=== PATIENT | female | born 1935 | race Caucasian/White ===

== ENCOUNTER → 2018-03-23 | Outpatient (CLI) | payer MEDICARE ==
[~2018-03-23] MED LIST: AMLO-150 PO; ASPI-496 PO; CALCIUM PO; CHOL200059 PO; GABA-826 PO; HYDR25TA6 PO; LEVO75TA5 PO; LOSA100T14 PO; LOSA1TAB19 PO; MELO15TA24 PO; OMEP-110 PO; TRAM50TA2 PO
[2018-03-23 10:05] LABS: MICROSCOPIC AUTO
[2018-03-23 10:06] LABS: CULTURE INDICATED? YES
[2018-03-23 10:08] LABS: BASOPHILS # (AUTO) 0.02 x10^3/uL (0-0.1); BASOPHILS % (AUTO) 0 % (0-1); EOSINOPHILS # (AUTO) 0.09 x10^3/uL (0-0.4); EOSINOPHILS % (AUTO) 1 % (1-7); LYMPHOCYTES % (AUTO) 21 % (22-44); MD NO; MEAN CORPUSCULAR HEMOGLOBIN 30.4 pg (27.0-34.8); MEAN CORPUSCULAR VOLUME 91.9 fL (80-100); MEAN PLATELET VOLUME 7.2 fL (7.4-10.4); MONOCYTES # (AUTO) 0.38 x10^3/uL (0.2-0.8); MONOCYTES % (AUTO) 5 % (2-9); NEUTROPHILS # (AUTO) 5.15 x10^3/uL (1.8-6.8); NEUTROPHILS % (AUTO) 72 % (42-75); PLATELET COUNT 292 x10^3/uL (130-400); RED BLOOD COUNT 4.71 x10^6/uL (3.82-5.3); RED CELL DISTRIBUTION WIDTH 14.2 % (9.6-15.2)
[2018-03-23 10:15] LABS: INTERNATIONAL NORMALIZED RATIO 0.98 (0.93-1.1); PROTHROMBIN TIME 10.4 Seconds (9.6-11.5)
[2018-03-23 10:16] LABS: ALBUMIN 3.9 g/dL (3.4-5.0); ANION GAP 6 mmol/L (5-15); CALCIUM 9.2 mg/dL (8.5-10.1); CHLORIDE 103 mmol/L (98-107)
[2018-03-23 10:19] LABS: ALANINE AMINOTRANSFERASE 23 U/L (12-78); ALKALINE PHOSPHATASE 85 U/L (45-117); BILIRUBIN,TOTAL 0.4 mg/dL (0.2-1.0); CREATININE 0.93 mg/dL (0.55-1.02); TOTAL PROTEIN 7.6 g/dL (6.4-8.2)
== END | disposition home or self-care (01) ==
LOC: STAR 08:41
PROVIDERS: ATTEND Neurological Surgery
DX: M51.36 Other intervertebral disc degeneration, lumbar region (principal); M47.816 Spondylosis without myelopathy or radiculopathy, lumbar region; M48.062 Spinal stenosis, lumbar region with neurogenic claudication; M41.86 Other forms of scoliosis, lumbar region; I10 Essential (primary) hypertension; R01.1 Cardiac murmur, unspecified
CPT/HCPCS: 36415; 71046; 72110; 80053; 81001; 85025; 85610; 85730; 87086; 93005

== ENCOUNTER 2018-04-06 10:59 | Inpatient (IN) | payer MEDICARE ==
[~2018-04-06] VITALS: Ht 152.4 cm; Wt 80.7 kg
[~2018-04-06 10:59] MED LIST changes: +BACITRACIN 50,000 UNIT ONE; +BUPIVACAINE/PF 0.25% ONE; +EPINEPHRINE 1 MG/ML, 1ML ONE; +THROMBIN 5,000 UNIT VIAL TP ONE; +VANCOMYCIN 1,000 MG ONE
[2018-04-06] MEDS ORDERED: LACTATED RINGERS 1,000 ML IV SCH (12:03)
[2018-04-06] MEDS ORDERED: ONDANSETRON 2MG/ML, 2ML IVPush STA (12:04)
[2018-04-06] MEDS ORDERED: OXYcodone IR 5MG TABLET PO STA (12:04)
[2018-04-06] MEDS ORDERED: ACETAMINOPHEN 500 MG TABLET PO STA (12:04)
[2018-04-06] MEDS ORDERED: GABAPENTIN 300 MG CAPSULE PO STA (12:04)
[2018-04-06] MEDS ORDERED: ACET-458 PO (12:12)
[2018-04-06] MEDS ORDERED: OMEP-110 PO (12:12)
[2018-04-06] MEDS ORDERED: MIDAZOLAM 1 MG/ML, 2ML ONE (15:05)
[2018-04-06] MEDS ORDERED: PROPOFOL 50 ML ONE ×2 (15:05→18:03)
[2018-04-06] MEDS ORDERED: FENTANYL PF 250 MCG/5ML ONE (15:05)
[2018-04-06] MEDS ORDERED: PROPOFOL 10 MG/ML, 20ML ONE ×3 (15:10→19:12)
[2018-04-06] MEDS ORDERED: SUCCINYLCHOLINE 20 MG/ML, 10ML ONE (16:26)
[2018-04-06] MEDS ORDERED: PHENYLEPHRINE 10 MG/ML ONE (16:26)
[2018-04-06] MEDS ORDERED: DEXAMETHASONE 4 MG/ML, 1ML ONE (16:26)
[2018-04-06] MEDS ORDERED: ROCURONIUM 10 MG/ML,10ML ONE (16:26)
[2018-04-06] MEDS ORDERED: hydrALAzine 20 MG/ML, 1ML IV PRN (17:30)
[2018-04-06] MEDS ORDERED: ACETAMINOPHEN 325 MG TABLET PO PRN (17:30)
[2018-04-06] MEDS ORDERED: ONDANSETRON 2MG/ML, 2ML IV PRN ×2 (17:30→23:30)
[2018-04-06] MEDS ORDERED: PROMETHAZINE 25 MG/ML, 1ML IV PRN (17:30)
[2018-04-06] MEDS ORDERED: MEPERIDINE/PF 25MG/0.5ML IVPush PRN (17:30)
[2018-04-06] MEDS ORDERED: ALBUTEROL/IPRATROPIUM 2.5MG/0.5MG, 3 ML NPPB PRN (17:30)
[2018-04-06] MEDS ORDERED: MIDAZOLAM 1 MG/ML, 2ML IV PRN (17:30)
[2018-04-06] MEDS ORDERED: LABETALOL 5MG/ML, 20ML IV PRN (17:30)
[2018-04-06] MEDS ORDERED: OXYcodone 5 MG/5 ML ORAL.SOL UDC PO PRN (17:30)
[2018-04-06] MEDS ORDERED: CEFAZOLIN 1,000 MG ONE (19:12)
[2018-04-06] MEDS ORDERED: FENTANYL PF 100 MCG/2ML ONE (19:39)
[2018-04-06] MEDS ORDERED: OXYcodone 5 MG/5 ML ORAL.SOL UDC ONE (19:40)
[2018-04-06] MEDS: FENTANYL PF 100 MCG/2ML IV PRN ×3 (19:40→19:50)
[2018-04-06] MEDS ORDERED: HYDROmorphone 1 MG/ML, 1ML ONE (19:53)
[2018-04-06] MEDS ORDERED: HYDROmorphone PCA 30 MG/30 ML IV PRN ×2 (20:00→23:30)
[2018-04-06] MEDS: HYDROmorphone 2 MG/ML, 1ML IVPush PRN ×3 (20:00→20:15)
[2018-04-06] MEDS ORDERED: TIZANIDINE 2MG TABLET PO ONE (20:00)
[2018-04-06] MEDS: GABAPENTIN 100 MG CAPSULE PO SCH (21:00)
[2018-04-06] MEDS ORDERED: PHARMACY MAY ADJ FOR RENAL FX MC PRN (23:00)
[2018-04-06] MEDS ORDERED: MAGNESIUM HYDROXIDE 8%, 30ML UDC PO PRN (23:30)
[2018-04-06] MEDS ORDERED: DIPHENHYDRAMINE 25 MG CAPSULE PO PRN (23:30)
[2018-04-06] MEDS ORDERED: BISACODYL 10 MG SUPP PR PRN (23:30)
[2018-04-06] MEDS ORDERED: morphine SULFATE 10 MG/ML, 1ML IV PRN (23:30)
[2018-04-06] MEDS ORDERED: DIPHENHYDRAMINE 50 MG/ML, 1ML IVPush PRN (23:30)
[2018-04-07 01:01] VITALS: BP 107/65
[2018-04-07] MEDS: NS + 20MEQ KCL 1,000 ML IV SCH ×3 (01:55→23:08)
[2018-04-07] MEDS: CEFAZOLIN PMX 1GM/50ML 50 ML IVPB SCH ×2 (01:55→08:51)
[2018-04-07] MEDS: METHOCARBAMOL 750 MG TABLET PO SCH ×3 (02:04→17:52)
[2018-04-07 05:07] LABS: BASOPHILS % (AUTO) 0 % (0-1); EOSINOPHILS % (AUTO) 0 % (1-7); LYMPHOCYTES # (AUTO) 0.58 x10^3/uL (1-3.4); LYMPHOCYTES % (AUTO) 8 % (22-44); MD NO; MEAN CORPUSCULAR HEMOGLOBIN 30.9 pg (27.0-34.8); MEAN CORPUSCULAR HGB CONC 33.2 g/dL (32.4-35.8); MEAN CORPUSCULAR VOLUME 93.1 fL (80-100); MEAN PLATELET VOLUME 7.6 fL (7.4-10.4); MONOCYTES % (AUTO) 1 % (2-9); NEUTROPHILS # (AUTO) 6.37 x10^3/uL (1.8-6.8); NEUTROPHILS % (AUTO) 90 % (42-75); PLATELET COUNT 218 x10^3/uL (130-400); RED BLOOD COUNT 3.68 x10^6/uL (3.82-5.3); RED CELL DISTRIBUTION WIDTH 13.5 % (9.6-15.2)
[2018-04-07 05:18] LABS: ANION GAP 7 mmol/L (5-15); CALCIUM 8.1 mg/dL (8.5-10.1); CHLORIDE 105 mmol/L (98-107)
[2018-04-07 05:20] LABS: CREATININE 0.95 mg/dL (0.55-1.02)
[2018-04-07] MEDS ORDERED: HYDROcodone/APAP 5/325 TABLET PO PRN (05:30)
[2018-04-07] MEDS: OMEPRAZOLE 20 MG CAPSULE.DR PO SCH (06:16)
[2018-04-07] MEDS: LEVOTHYROXINE 75 MCG TABLET PO SCH (06:17)
[2018-04-07 06:57] VITALS: BP 104/63
[2018-04-07] MEDS: HYDROCHLOROTHIAZIDE 25 MG TABLET PO SCH (08:47)
[2018-04-07] MEDS: LOSARTAN 50MG TABLET PO SCH (08:47)
[2018-04-07] MEDS: AMLODIPINE 5 MG TABLET PO SCH (08:48)
[2018-04-07] MEDS: SENNA/DOCUSATE TABLET PO SCH (08:50)
[2018-04-07 11:00] VITALS: BP 110/68
[2018-04-07 13:06] VITALS: BP 119/64
[2018-04-07 16:00] VITALS: BP 108/68
[2018-04-07 19:43] VITALS: BP 121/63
[2018-04-07] MEDS: OXYcodone/APAP 5/325MG TABLET PO PRN (20:44)
[2018-04-07] MEDS: GABAPENTIN 100 MG CAPSULE PO SCH (20:44)
[2018-04-08] MEDS: METHOCARBAMOL 750 MG TABLET PO SCH ×3 (02:18→17:46)
[2018-04-08] MEDS: OXYcodone/APAP 5/325MG TABLET PO PRN ×5 (02:19→20:11)
[2018-04-08 02:50] VITALS: BP 120/65
[2018-04-08 05:22] LABS: BASOPHILS # (AUTO) 0.03 x10^3/uL (0-0.1); BASOPHILS % (AUTO) 0 % (0-1); EOSINOPHILS # (AUTO) 0.02 x10^3/uL (0-0.4); EOSINOPHILS % (AUTO) 0 % (1-7); LYMPHOCYTES # (AUTO) 1.98 x10^3/uL (1-3.4); LYMPHOCYTES % (AUTO) 21 % (22-44); MD NO; MEAN CORPUSCULAR HEMOGLOBIN 31.6 pg (27.0-34.8); MEAN CORPUSCULAR HGB CONC 33.7 g/dL (32.4-35.8); MEAN CORPUSCULAR VOLUME 93.5 fL (80-100); MEAN PLATELET VOLUME 7.7 fL (7.4-10.4); MONOCYTES # (AUTO) 0.67 x10^3/uL (0.2-0.8); MONOCYTES % (AUTO) 7 % (2-9); NEUTROPHILS # (AUTO) 6.68 x10^3/uL (1.8-6.8); NEUTROPHILS % (AUTO) 71 % (42-75); PLATELET COUNT 198 x10^3/uL (130-400); RED BLOOD COUNT 3.43 x10^6/uL (3.82-5.3); RED CELL DISTRIBUTION WIDTH 13.9 % (9.6-15.2)
[2018-04-08 05:26] LABS: ANION GAP 4 mmol/L (5-15); CALCIUM 7.8 mg/dL (8.5-10.1); CHLORIDE 110 mmol/L (98-107); CREATININE 0.81 mg/dL (0.55-1.02)
[2018-04-08] MEDS: OMEPRAZOLE 20 MG CAPSULE.DR PO SCH (06:48)
[2018-04-08] MEDS: LEVOTHYROXINE 75 MCG TABLET PO SCH (06:49)
[2018-04-08] MEDS: NS + 20MEQ KCL 1,000 ML IV SCH ×2 (08:00→17:40)
[2018-04-08 08:52] VITALS: BP 90/51
[2018-04-08] MEDS: SENNA/DOCUSATE TABLET PO SCH (09:00)
[2018-04-08] MEDS: AMLODIPINE 5 MG TABLET PO SCH (09:00)
[2018-04-08] MEDS: LOSARTAN 50MG TABLET PO SCH (09:00)
[2018-04-08] MEDS: HYDROCHLOROTHIAZIDE 25 MG TABLET PO SCH (09:09)
[2018-04-08 12:03] VITALS: BP 104/61
[2018-04-08 14:19] VITALS: BP 95/55
[2018-04-08 19:53] VITALS: BP 101/62
[2018-04-08] MEDS: GABAPENTIN 100 MG CAPSULE PO SCH (20:10)
[2018-04-09 01:54] VITALS: BP 111/65
[2018-04-09 01:55] VITALS: BP 111/65
[2018-04-09] MEDS: OXYcodone/APAP 5/325MG TABLET PO PRN ×4 (01:56→14:22)
[2018-04-09] MEDS: METHOCARBAMOL 750 MG TABLET PO SCH ×3 (01:56→18:29)
[2018-04-09] MEDS: NS + 20MEQ KCL 1,000 ML IV SCH ×3 (04:01→23:50)
[2018-04-09 05:14] LABS: BASOPHILS # (AUTO) 0.01 x10^3/uL (0-0.1); BASOPHILS % (AUTO) 0 % (0-1); EOSINOPHILS # (AUTO) 0.04 x10^3/uL (0-0.4); EOSINOPHILS % (AUTO) 0 % (1-7); LYMPHOCYTES # (AUTO) 2.17 x10^3/uL (1-3.4); LYMPHOCYTES % (AUTO) 21 % (22-44); MD NO; MEAN CORPUSCULAR HEMOGLOBIN 31.1 pg (27.0-34.8); MEAN CORPUSCULAR HGB CONC 33.5 g/dL (32.4-35.8); MEAN CORPUSCULAR VOLUME 92.9 fL (80-100); MEAN PLATELET VOLUME 7.7 fL (7.4-10.4); MONOCYTES % (AUTO) 8 % (2-9); NEUTROPHILS # (AUTO) 7.41 x10^3/uL (1.8-6.8); NEUTROPHILS % (AUTO) 71 % (42-75); PLATELET COUNT 208 x10^3/uL (130-400); RED BLOOD COUNT 3.57 x10^6/uL (3.82-5.3); RED CELL DISTRIBUTION WIDTH 14.2 % (9.6-15.2)
[2018-04-09 05:17] LABS: ANION GAP 6 mmol/L (5-15); CALCIUM 8.1 mg/dL (8.5-10.1); CHLORIDE 105 mmol/L (98-107); CREATININE 0.94 mg/dL (0.55-1.02)
[2018-04-09] MEDS: OMEPRAZOLE 20 MG CAPSULE.DR PO SCH (06:01)
[2018-04-09] MEDS: LEVOTHYROXINE 75 MCG TABLET PO SCH (06:02)
[2018-04-09] MEDS: LOSARTAN 50MG TABLET PO SCH (08:49)
[2018-04-09] MEDS: HYDROCHLOROTHIAZIDE 25 MG TABLET PO SCH (08:49)
[2018-04-09 08:50] VITALS: BP 126/69
[2018-04-09] MEDS: AMLODIPINE 5 MG TABLET PO SCH (08:50)
[2018-04-09] MEDS: SENNA/DOCUSATE TABLET PO SCH (08:55)
[2018-04-09 12:37] VITALS: BP 123/73
[2018-04-09 19:14] VITALS: BP 108/64
[2018-04-09] MEDS: GABAPENTIN 100 MG CAPSULE PO SCH (21:01)
[2018-04-09] MEDS ORDERED: ONDANSETRON ODT 4 MG ONE (21:10)
[2018-04-09] MEDS: ONDANSETRON ODT 4 MG PO PRN (21:12)
[2018-04-10 00:02] VITALS: BP 108/54
[2018-04-10] MEDS: OXYcodone/APAP 5/325MG TABLET PO PRN ×3 (01:57→11:22)
[2018-04-10] MEDS: METHOCARBAMOL 750 MG TABLET PO SCH ×3 (02:13→17:27)
[2018-04-10 05:42] LABS: BASOPHILS # (AUTO) 0.03 x10^3/uL (0-0.1); BASOPHILS % (AUTO) 0 % (0-1); EOSINOPHILS # (AUTO) 0.15 x10^3/uL (0-0.4); EOSINOPHILS % (AUTO) 2 % (1-7); LYMPHOCYTES # (AUTO) 1.49 x10^3/uL (1-3.4); LYMPHOCYTES % (AUTO) 16 % (22-44); MD NO; MEAN CORPUSCULAR HEMOGLOBIN 31.4 pg (27.0-34.8); MEAN CORPUSCULAR VOLUME 92.2 fL (80-100); MEAN PLATELET VOLUME 7.5 fL (7.4-10.4); MONOCYTES # (AUTO) 0.73 x10^3/uL (0.2-0.8); MONOCYTES % (AUTO) 8 % (2-9); NEUTROPHILS # (AUTO) 6.95 x10^3/uL (1.8-6.8); NEUTROPHILS % (AUTO) 74 % (42-75); PLATELET COUNT 209 x10^3/uL (130-400); RED BLOOD COUNT 3.42 x10^6/uL (3.82-5.3); RED CELL DISTRIBUTION WIDTH 13.9 % (9.6-15.2)
[2018-04-10] MEDS: LEVOTHYROXINE 75 MCG TABLET PO SCH (07:20)
[2018-04-10] MEDS: OMEPRAZOLE 20 MG CAPSULE.DR PO SCH (07:20)
[2018-04-10] MEDS: ONDANSETRON ODT 4 MG PO PRN ×3 (08:10→23:49)
[2018-04-10 08:24] VITALS: BP 100/60
[2018-04-10] MEDS: HYDROCHLOROTHIAZIDE 25 MG TABLET PO SCH (08:31)
[2018-04-10] MEDS: AMLODIPINE 5 MG TABLET PO SCH (08:31)
[2018-04-10] MEDS: LOSARTAN 50MG TABLET PO SCH (08:31)
[2018-04-10] MEDS: SENNA/DOCUSATE TABLET PO SCH (08:33)
[2018-04-10] MEDS: NS + 20MEQ KCL 1,000 ML IV SCH ×2 (09:38→17:27)
[2018-04-10] MEDS ORDERED: PROCHLORPERAZINE 10MG TABLET PO PRN (12:00)
[2018-04-10] MEDS ORDERED: PROMETHAZINE 25 MG SUPP PR PRN (12:00)
[2018-04-10] MEDS ORDERED: ACETAMINOPHEN 325 MG TABLET PO PRN (13:30)
[2018-04-10] MEDS ORDERED: OXYcodone IR 5MG TABLET PO PRN (13:30)
[2018-04-10] MEDS ORDERED: PROMETHAZINE 25 MG/ML, 1ML IM PRN (13:30)
[2018-04-10 15:30] VITALS: BP 99/47
[2018-04-10 20:00] VITALS: BP 116/68
[2018-04-10] MEDS: GABAPENTIN 100 MG CAPSULE PO SCH (21:13)
[2018-04-11 01:27] VITALS: BP 105/63
[2018-04-11] MEDS: METHOCARBAMOL 750 MG TABLET PO SCH (01:28)
[2018-04-11] MEDS: NS + 20MEQ KCL 1,000 ML IV SCH ×3 (04:06→21:28)
[2018-04-11 05:23] LABS: BASOPHILS # (AUTO) 0.02 x10^3/uL (0-0.1); BASOPHILS % (AUTO) 0 % (0-1); EOSINOPHILS # (AUTO) 0.11 x10^3/uL (0-0.4); EOSINOPHILS % (AUTO) 2 % (1-7); LYMPHOCYTES # (AUTO) 1.75 x10^3/uL (1-3.4); LYMPHOCYTES % (AUTO) 23 % (22-44); MD NO; MEAN CORPUSCULAR HEMOGLOBIN 31.3 pg (27.0-34.8); MEAN CORPUSCULAR HGB CONC 33.6 g/dL (32.4-35.8); MEAN CORPUSCULAR VOLUME 93.2 fL (80-100); MEAN PLATELET VOLUME 7.5 fL (7.4-10.4); MONOCYTES # (AUTO) 0.46 x10^3/uL (0.2-0.8); MONOCYTES % (AUTO) 6 % (2-9); NEUTROPHILS % (AUTO) 69 % (42-75); PLATELET COUNT 240 x10^3/uL (130-400); RED BLOOD COUNT 3.43 x10^6/uL (3.82-5.3); RED CELL DISTRIBUTION WIDTH 13.7 % (9.6-15.2)
[2018-04-11] MEDS: OMEPRAZOLE 20 MG CAPSULE.DR PO SCH (05:36)
[2018-04-11] MEDS: LEVOTHYROXINE 75 MCG TABLET PO SCH (05:36)
[2018-04-11 07:16] VITALS: BP 114/73
[2018-04-11] MEDS: ONDANSETRON ODT 4 MG PO PRN (08:02)
[2018-04-11] MEDS: TIZANIDINE 2MG TABLET PO PRN (08:14)
[2018-04-11] MEDS: DEXAMETHASONE 4 MG/ML, 1ML IVPush SCH ×3 (09:00→21:00)
[2018-04-11] MEDS: SENNA/DOCUSATE TABLET PO SCH (09:04)
[2018-04-11] MEDS: LOSARTAN 50MG TABLET PO SCH (09:05)
[2018-04-11] MEDS: HYDROCHLOROTHIAZIDE 25 MG TABLET PO SCH (09:05)
[2018-04-11] MEDS ORDERED: DEXAMETHASONE 4 MG/ML, 5ML ONE ×3 (09:20→21:22)
[2018-04-11] MEDS: METOCLOPRAMIDE 5 MG/ML, 2ML IVPush SCH ×3 (09:24→21:34)
[2018-04-11] MEDS: AMLODIPINE 5 MG TABLET PO SCH (09:27)
[2018-04-11] MEDS: morphine SULFATE 10 MG/ML, 1ML IV PRN ×2 (13:10→17:05)
[2018-04-11 14:00] VITALS: BP 121/69
[2018-04-11 19:54] VITALS: BP 124/62
[2018-04-11] MEDS: GABAPENTIN 100 MG CAPSULE PO SCH (21:33)
[2018-04-12] MEDS: DEXAMETHASONE 4 MG/ML, 1ML IVPush SCH ×3 (02:47→14:47)
[2018-04-12] MEDS: METOCLOPRAMIDE 5 MG/ML, 2ML IVPush SCH ×3 (02:47→14:46)
[2018-04-12] MEDS: OXYcodone/APAP 5/325MG TABLET PO PRN ×4 (02:47→14:46)
[2018-04-12 03:00] VITALS: BP 117/67
[2018-04-12 05:10] LABS: BASOPHILS # (AUTO) 0.01 x10^3/uL (0-0.1); BASOPHILS % (AUTO) 0 % (0-1); EOSINOPHILS # (AUTO) 0.11 x10^3/uL (0-0.4); EOSINOPHILS % (AUTO) 2 % (1-7); LYMPHOCYTES # (AUTO) 0.73 x10^3/uL (1-3.4); LYMPHOCYTES % (AUTO) 12 % (22-44); MD NO; MEAN CORPUSCULAR HEMOGLOBIN 31.3 pg (27.0-34.8); MEAN CORPUSCULAR HGB CONC 34.3 g/dL (32.4-35.8); MEAN CORPUSCULAR VOLUME 91.3 fL (80-100); MEAN PLATELET VOLUME 7.3 fL (7.4-10.4); MONOCYTES # (AUTO) 0.13 x10^3/uL (0.2-0.8); MONOCYTES % (AUTO) 2 % (2-9); NEUTROPHILS # (AUTO) 4.99 x10^3/uL (1.8-6.8); NEUTROPHILS % (AUTO) 84 % (42-75); PLATELET COUNT 255 x10^3/uL (130-400); RED BLOOD COUNT 3.66 x10^6/uL (3.82-5.3); RED CELL DISTRIBUTION WIDTH 13.8 % (9.6-15.2)
[2018-04-12] MEDS: OMEPRAZOLE 20 MG CAPSULE.DR PO SCH (05:38)
[2018-04-12] MEDS: LEVOTHYROXINE 75 MCG TABLET PO SCH (05:38)
[2018-04-12] MEDS: TIZANIDINE 2MG TABLET PO PRN (06:01)
[2018-04-12 07:17] VITALS: BP 127/73
[2018-04-12] MEDS: HYDROCHLOROTHIAZIDE 25 MG TABLET PO SCH (09:00)
[2018-04-12] MEDS: AMLODIPINE 5 MG TABLET PO SCH (09:00)
[2018-04-12] MEDS: SENNA/DOCUSATE TABLET PO SCH (09:00)
[2018-04-12] MEDS: LOSARTAN 50MG TABLET PO SCH (09:00)
[2018-04-12] MEDS ORDERED: DEXAMETHASONE 4 MG/ML, 5ML ONE ×2 (09:01→14:44)
[2018-04-12] MEDS: NS + 20MEQ KCL 1,000 ML IV SCH (12:00)
[2018-04-12] MEDS ORDERED: OXYC-302 PO (12:30)
[2018-04-12] MEDS ORDERED: TIZA2CAP2 PO (12:31)
[2018-04-12] MEDS ORDERED: METH4TAB2 PO (12:31)
[2018-04-12 12:45] VITALS: BP 128/65
== END 2018-04-12 15:03 | DRG 453 ==
LOC: OUT 10:59 → 4NOR 22:50 → OUT 22:55 → 4NOR 22:55
PROVIDERS: ADMIT Neurological Surgery; ATTEND Neurological Surgery
PROC: 0SG30AJ Fusion of Lumbosacral Joint with Interbody Fusion Device, Posterior Approach, Anterior Column, Open Approach (ICD-10-PCS; 2018-04-06)
PROC: 0SG0071 Fusion of Lumbar Vertebral Joint with Autologous Tissue Substitute, Posterior Approach, Posterior Column, Open Approach (ICD-10-PCS; 2018-04-06)
PROC: 00QT0ZZ Repair Spinal Meninges, Open Approach (ICD-10-PCS; 2018-04-06)
PROC: 4A11X4G Monitoring of Peripheral Nervous Electrical Activity, Intraoperative, External Approach (ICD-10-PCS; 2018-04-06)
PROC: 0SG3071 Fusion of Lumbosacral Joint with Autologous Tissue Substitute, Posterior Approach, Posterior Column, Open Approach (ICD-10-PCS; 2018-04-06)
PROC: 0SG00AJ Fusion of Lumbar Vertebral Joint with Interbody Fusion Device, Posterior Approach, Anterior Column, Open Approach (ICD-10-PCS; principal; 2018-04-06 14:00)
DX: M48.062 Spinal stenosis, lumbar region with neurogenic claudication (principal); R53.2 Functional quadriplegia; G97.41 Accidental puncture or laceration of dura during a procedure; M43.16 Spondylolisthesis, lumbar region; I10 Essential (primary) hypertension; M19.90 Unspecified osteoarthritis, unspecified site; E03.9 Hypothyroidism, unspecified; K21.9 Gastro-esophageal reflux disease without esophagitis; Z86.718 Personal history of other venous thrombosis and embolism
CPT/HCPCS: 36415; 72100; 80048; 85025; 95938; 95941; C1713; G0378; J0171; J0690; J1100; J1170; J2250; J2405; J2704; J3010; J3370; J3480; J3490; Q0162; Q0164; C1762; C1781; J0330; J2270; J2370; J2765; J7120